=== PATIENT | male | born 1950 | race Caucasian/White ===

== ENCOUNTER 2017-08-20 20:38 | Emergency (ER) | payer BC, MEDICARE ==
[2017-08-20 21:00] VITALS: RESP 18
--- NOTE | 2017-08-20 21:03 | ED ---
Chest Pain HPI - General Chief Complaint: Chest Pain Stated Complaint: chest pain Time Seen by Provider: 08/20/17 20:51 Source: patient Mode of arrival: ambulatory Limitations: no limitations - History of Present Illness Initial Comments: This patient is a 66-year-old man who presents to be evaluated for substernal chest pain that came on between 3-4 hours ago. The patient states that he was at rest. He describes as a feeling like someone is pressing down on his chest. It is constant. He rates it mild. The patient did not notice any worsening or relieving factors. He does state that there is a bit of an upset stomach that came along with that he thought that it may be some indigestion. Patient denies dyspnea, diaphoresis, palpitations, lightheadedness or syncope. He did have a similar episode a few years ago, had a stress test, and was told that nothing was wrong with him. Patient denies smoking, stating that he quit 35 years ago. Patient's father did have a heart attack but he states that he was over 60 years old at the time. MD Complaint: chest pain Onset/Timin -: hour(s) Onset: during rest Pain Location: substernal Pain Radiation: none Severity: moderate Quality: heaviness Consistency: constant Improves With: nothing Worsens With: nothing Anginal Symptoms: nausea Treatments Prior to Arrival: none - Related Data Home Medications Medication Instructions Recorded Confirmed Aspirin 81 mg PO HS 08/20/17 08/20/17 Calcium Carbonate/Vitamin D3 1 tab PO BID 08/20/17 08/20/17 [Calcium 600-Vit D3 400 Caplet] Lisinopril [Zestril] 40 mg PO BID 08/20/17 08/20/17 Multivitamins, Thera [Multivitamin 1 tab PO DAILY 08/20/17 08/20/17 (formulary)] Naproxen [Naprosyn] 500 mg PO BID 08/20/17 08/20/17 amLODIPine [Norvasc] 10 mg PO DAILY 08/20/17 08/20/17 Allergies Allergy/AdvReac Type Severity Reaction Status Date / Time Penicillins Allergy Unknown Verified 08/20/17 21:32 Childhood Review of Systems ROS Statement: Those systems with pertinent positive or pertinent negative responses have been documented in the HPI. ROS Other: All systems not noted in ROS Statement are negative. Constitutional: Denies: fever, chills Respiratory: Denies: cough, dyspnea Cardiovascular: Reports: chest pain. Denies: palpitations, orthopnea, edema, syncope Gastrointestinal: Reports: nausea. Denies: abdominal pain, vomiting, diarrhea, melena, hematochezia Genitourinary: Denies: dysuria, hematuria Musculoskeletal: Denies: back pain Skin: Denies: rash Neurological: Denies: headache, weakness, numbness EKG Findings - EKG Results: EKG: interpreted by ERMD, sinus rhythm, normal axis, normal QRS, normal ST/T - Blocks, Velva, Hypertrophy, ST Abn: AV and intraventricular conduction: 1 AV block Past Medical History Past Medical History: Hypertension History of Any Multi-Drug Resistant Organisms: None Reported Past Surgical History: Orthopedic Surgery Additional Past Surgical History / Comment(s): right shoulder replacement and revision. left femur ORIF. left knee arthroscopy. Past Psychological History: No Psychological Hx Reported Smoking Status: Former smoker Past Alcohol Use History: Occasional Past Drug Use History: None Reported General Exam Limitations: no limitations General appearance: alert, in no apparent distress Head exam: Present: atraumatic, normocephalic Eye exam: Present: normal appearance. Absent: scleral icterus, conjunctival injection ENT exam: Present: normal oropharynx Neck exam: Present: normal inspection, full ROM Respiratory exam: Present: normal lung sounds bilaterally. Absent: respiratory distress, wheezes, rales, rhonchi, stridor Cardiovascular Exam: Present: regular rate, normal rhythm, normal heart sounds. Absent: systolic murmur, diastolic murmur, rubs, gallop GI/Abdominal exam: Present: soft. Absent: distended, tenderness, guarding, rebound, mass, pulsatile mass Extremities exam: Present: normal inspection, normal capillary refill. Absent: pedal edema, calf tenderness Back exam: Present: normal inspection. Absent: CVA tenderness (R), CVA tenderness (L) Neurological exam: Present: alert Skin exam: Present: warm, dry, intact, normal color. Absent: rash, cyanosis, diaphoretic, erythema, petechiae, pallor, mottled Course Vital Signs 08/20/17 08/20/17 08/20/17 20:40 20:59 21:36 Temperature 99 F Pulse Rate 68 71 63 Respiratory 16 18 18 Rate Blood Pressure 158/93 140/87 137/91 O2 Sat by Pulse 99 99 98 Oximetry 08/20/17 08/20/17 08/20/17 21:40 21:56 22:30 Temperature Pulse Rate 77 57 L 66 Respiratory 18 18 18 Rate Blood Pressure 124/78 116/80 135/75 O2 Sat by Pulse 98 98 97 Oximetry Disposition Clinical Impression: Chest pain Disposition: HOME SELF-CARE Condition: Good Instructions: Chest Pain (ED) Referrals: Phillip Almeida MD [Primary Care Provider] - 1-2 days Manuel Christensen MD [STAFF PHYSICIAN] - 1-2 days
[2017-08-20] MEDS ORDERED: NITROGLYCERIN SL TABS 0.4 MG TAB SUBLINGUAL STA (21:11)
[2017-08-20 21:32] LABS: Basophils # (A) 0.1 k/uL (0-0.2); Basophils % (A) 1 %; CH 30.9; CHCM 33.3; Eosinophils # (A) 0.4 k/uL (0-0.7); Eosinophils % (A) 8 %; HCT 44.1 % (39.0-53.0); HDW 2.37; HGB 14.6 gm/dL (13.0-17.5); INR 1.1 (<1.2); Luc # (Auto) 0.15; Luc % (Auto) 3; Lymphocytes # (A) 1.9 k/uL (1.0-4.8); Lymphocytes % (A) 34 %; MCH 30.9 pg (25.0-35.0); MCHC 33.1 g/dL (31.0-37.0); MCV 93.3 fL (80.0-100.0); Mean Platelet Volume 7.5; Monocytes # (A) 0.4 k/uL (0-1.0); Monocytes % (A) 8 %; Neutrophils # (A) 2.7 k/uL (1.3-7.7); Neutrophils % (A) 48 %; Partial Thromboplastin Time 24.8 sec (22.0-30.0); Prothrombin Time 10.8 sec (9.0-12.0); RBC 4.72 m/uL (4.30-5.90); RDW 13.5 % (11.5-15.5); WBC 5.7 k/uL (3.8-10.6); WBC (Perox) 5.99
[2017-08-20 21:43] LABS: ALT 54 U/L (21-72); AST 32 U/L (17-59); Alkaline Phosphatase 66 U/L (38-126); Anion Gap 12 mmol/L; Blood Urea Nitrogen 18 mg/dL (9-20); Calcium 9.5 mg/dL (8.4-10.2); Carbon Dioxide 22 mmol/L (22-30); Chloride 106 mmol/L (98-107); Glucose 110 mg/dL (74-99); Non-African American GFR(MDRD) >60 (>60 ml/min/1.73 sqM); Sodium 140 mmol/L (137-145); Total Bilirubin 0.3 mg/dL (0.2-1.3); Total Protein 7.1 g/dL (6.3-8.2)
[2017-08-20 21:48] LABS: Creatine Kinase 146 U/L (55-170)
--- NOTE | 2017-08-20 21:58 | XR ---
EXAMINATION TYPE: XR chest 1V portable DATE OF EXAM: 08/20/2017 COMPARISON: 08/12/2011 HISTORY: Chest pain TECHNIQUE: Single frontal view of the chest is obtained. FINDINGS: Heart and mediastinum are normal. Lungs are clear. Diaphragm is normal. There are chest le ads. There is old right clavicle fracture. IMPRESSION: No active cardiopulmonary disease. No change.
[2017-08-20 22:02] LABS: Creatine Kinase MB 1.8 ng/mL (0.0-2.4); Troponin I <0.012 ng/mL (0.000-0.034)
[2017-08-20 23:30] VITALS: BP 123/86; PULSE 56
[2017-08-21 00:20] VITALS: TEMP 97.6
== END 2017-08-21 00:20 | disposition home or self-care (01) ==
LOC: EC 20:38
DX: R07.2 Precordial pain (principal); I10 Essential (primary) hypertension; Z87.891 Personal history of nicotine dependence; Z79.82 Long term (current) use of aspirin; Z79.1 Long term (current) use of non-steroidal anti-inflammatories (NSAID); Z79.899 Other long term (current) drug therapy; Z88.0 Allergy status to penicillin
CPT/HCPCS: 36415; 71010; 80053; 82550; 82553; 83735; 84484; 85025; 85610; 85730; 93005; 99285

== ENCOUNTER 2018-06-16 07:46 | Day surgery (SDC) | payer BC, MEDICARE ==
[2018-06-15 09:20] VITALS: BMI 27.8
[2018-06-16] MEDS ORDERED: LACTATED RINGERS 1,000 ML IV ONE ×2 (08:26)
[2018-06-16] MEDS ORDERED: LIDOCAINE 1% 20 ML VIAL (10MG/ML) FOR IV START INTRADERMA ONE (08:26)
[2018-06-16 08:32] VITALS: RESP 16; TEMP 97.7
[2018-06-16] MEDS ORDERED: ONDANSETRON 4 MG/2 ML VIAL IVP ONE (08:43)
[2018-06-16] MEDS ORDERED: LIDOCAINE 1% 20 ML VIAL (10MG/ML) FOR IV START INTRADERMA PRN (08:43)
[2018-06-16] MEDS ORDERED: LACTATED RINGERS 1,000 ML IV SCH (08:45)
[2018-06-16] MEDS ORDERED: PROPOFOL 10 MG/ML 20 ML VIAL IV ONE (09:11)
--- NOTE | 2018-06-16 09:57 | P.PCN ---
Date of Procedure: 06/16/18 Procedure(s) Performed: Procedure: Total colonoscopy. Preoperative diagnosis: Screening for neoplasia. Postoperative diagnosis: Diverticulosis with no evidence of acute diverticulitis , strictures, polyps or cancer. Preparation: HalfLytely prep. Sedation: Was provided by anesthesia. Brief clinical history: The patient is a 67-year-old male who is scheduled for this evaluation for screening for neoplasia age being his risk factor. He had a prior exam more than 10 years ago. The patient has no abdominal complaints, bleeding or anemia. Procedure: With the patient on his left lateral decubitus position and after informed consent and adequate sedation, the perianal area was inspected and it did not show any fissures or fistulas. There were no masses felt on digital rectal examination. The Olympus CFQ 160L video colonoscope was then inserted in the rectum in the usual fashion and advanced to the cecum. There were multiple diverticular orifices seen scattered, mostly on the left side with occasional orifice around the hepatic flexure and on the right side, with no evidence of acute diverticulitis or strictures. The mucosa appeared healthy. No polyps or tumors were seen. I retroflexed the endoscope in the rectum before the endoscope was withdrawn. The patient tolerated the procedure well. Plan: The patient was reassured. Discussed dietary measures. He will follow up with you as planned and I recommended repeat exam in 10 years.
[2018-06-16 10:13] VITALS: BP 113/70; PULSE 50
== END 2018-06-16 10:34 | disposition home or self-care (01) ==
LOC: ORWHC2ENDO 07:46
DX: Z12.11 Encounter for screening for malignant neoplasm of colon (principal); K57.30 Diverticulosis of large intestine without perforation or abscess without bleeding; M19.90 Unspecified osteoarthritis, unspecified site; I10 Essential (primary) hypertension; Z85.828 Personal history of other malignant neoplasm of skin; Z88.0 Allergy status to penicillin; Z79.899 Other long term (current) drug therapy
CPT/HCPCS: 45378; J2704

== ENCOUNTER → 2018-08-07 | Outpatient (CLI) | payer BC, MEDICARE ==
--- NOTE | 2018-08-07 09:44 | US ---
EXAMINATION TYPE: US renal artery duplex complet DATE OF EXAM: 08/07/2018 COMPARISON: NONE CLINICAL HISTORY: I10 essential hypertention. uncontrolled HTN for five plus years. MEASUREMENTS: RENAL SIZE: Rt Kidney: 11.2 x 6.1 x 6.3 cm Lt Kidney: 12.2 x 6.2 x 5.5 cm RESISTANCE INDEX Right: 0.59 Left: 0.58 RA/AO RATIO (< 3.5 ) Right: 1.3 Left: 1.2 RA VELOCITY ( < 180 cm/s) Right: 122 Left: 118 Aorta unremarkable. Cysts noted on both kidneys, largest right measures 1.5 x 1.5 x 1.3 cm, and large st left measures 4.2 x 4.0 x 3.0 cm. No Ultrasound evidence for renal artery stenosis. Good upstroke on segmentals at renal hilum. IMPRESSION: No diagnostic evidence of renal artery stenosis.
== END | disposition home or self-care (01) ==
LOC: RADUSMAIN 07:53
PROVIDERS: ATTEND Family Medicine
DX: I10 Essential (primary) hypertension (principal)
CPT/HCPCS: 93975

== ENCOUNTER → 2020-06-08 | Outpatient (CLI) | payer MEDICARE ==
--- NOTE | 2020-06-08 07:23 | US ---
EXAMINATION TYPE: US duplex aorta DATE OF EXAM: 06/08/2020 COMPARISON: US 08/07/18 CLINICAL HISTORY: Z13.6 Encounter for screening for cardiovascular... EXAM MEASUREMENTS: Abdominal Aorta: Proximal: 2.9 x 2.7 cm Mid: 3.1 x 2.2 cm Distal: 1.9 x 1.8 cm Bifurcation: 1.0 cm 1.2 cm No evidence of AAA, suboptimal visualization overall due to large amounts of bowel gas. IMPRESSION: No evidence of AAA
== END | disposition home or self-care (01) ==
LOC: RADUSWWP 06:52
PROVIDERS: ATTEND Family Medicine
DX: Z13.6 Encounter for screening for cardiovascular disorders (principal)
CPT/HCPCS: 93979

== ENCOUNTER → 2024-05-06 | Outpatient (CLI) | payer MEDICARE | END | disposition home or self-care (01) | LOC: LABWHC1 11:00 | PROVIDERS: ATTEND Orthopaedic Surgery | DX: Z01.812 Encounter for preprocedural laboratory examination (principal); Z22.322 Carrier or suspected carrier of Methicillin resistant Staphylococcus aureus | CPT/HCPCS: 85610; 85730 ==

== ENCOUNTER → 2024-05-06 | Outpatient (CLI) | payer MEDICARE | END | disposition home or self-care (01) | LOC: LABPAT 14:06 | PROVIDERS: ATTEND Orthopaedic Surgery | DX: Z01.818 Encounter for other preprocedural examination (principal); I44.0 Atrioventricular block, first degree; Z22.322 Carrier or suspected carrier of Methicillin resistant Staphylococcus aureus | CPT/HCPCS: 86850; 86900; 86901 ==

== ENCOUNTER 2024-05-17 08:00 | Inpatient (IN) | payer MEDICARE ==
[~2024-05-17 08:00] MED LIST: SODIUM CHLORIDE 0.9% 1,000 ML BAG ONE; SODIUM CHLORIDE 0.9% 50 ML BAG ONE; ceFAZolin 1,000 MG VIAL ONE
[2024-05-17] MEDS ORDERED: DEXAMETHASONE SOD PHOSPHATE 4 MG/ML 1 ML VIAL ONE ×2 (08:37)
[2024-05-17] MEDS ORDERED: MELOXICAM 7.5 MG TAB ONE ×2 (08:37)
[2024-05-17] MEDS ORDERED: ACETAMINOPHEN TAB 500 MG TAB ONE ×2 (08:37)
[2024-05-17] MEDS ORDERED: ONDANSETRON 4 MG/2 ML VIAL ONE ×2 (08:37)
[2024-05-17] MEDS ORDERED: GABAPENTIN 300 MG CAP ONE ×2 (08:38)
[2024-05-17] MEDS ORDERED: ROPIVACAINE 5 MG/ML 30 ML VIAL ONE ×4 (08:38→10:00)
[2024-05-17] MEDS ORDERED: MIDAZOLAM 2 MG/2 ML VIAL ONE ×3 (08:38→09:22)
[2024-05-17] MEDS ORDERED: LACTATED RINGERS 1,000 ML BAG ONE (09:00)
[2024-05-17] MEDS ORDERED: ceFAZolin 10 GM VIAL IVPB ONE (09:00)
[2024-05-17] MEDS ORDERED: SODIUM CHLORIDE 0.9% 50 ML BAG IV ONE (09:00)
[2024-05-17] MEDS ORDERED: ePHEDrine 50 MG/ML 1 ML VIAL ONE (09:22)
[2024-05-17] MEDS ORDERED: PHENYLEPHRINE 10 MG/ML VIAL ONE (09:22)
[2024-05-17] MEDS ORDERED: TRANEXAMIC 1,000 MG/100ML-NACL PREMIX BAG ONE (09:22)
[2024-05-17] MEDS ORDERED: LIDOCAINE 1% INJ 10MG/ML (20 ML MDV) ONE (09:22)
[2024-05-17] MEDS ORDERED: fentaNYL (PF) 50 MCG/ML 2 ML AMP ONE (09:22)
[2024-05-17] MEDS ORDERED: PROPOFOL 10 MG/ML 20 ML VIAL IV ONE (09:22)
[2024-05-17] MEDS ORDERED: SODIUM CHLORIDE 0.9% 1,000 ML BAG ONE (10:00)
[2024-05-17] MEDS ORDERED: ceFAZolin 1,000 MG VIAL ONE (10:00)
[2024-05-17] MEDS ORDERED: SENNOSIDES-DOCUSATE SODIUM 1 EACH TAB PO ONE ×2 (20:36)
[2024-05-17] MEDS ORDERED: HYDROcodone/APAP 5-325MG 1 EACH TAB ONE ×2 (20:36)
[2024-05-18] MEDS ORDERED: METOPROLOL SUCCINATE (ER) 100 MG TAB.ER.24H PO ONE (00:01)
[2024-05-18] MEDS ORDERED: DOXAZOSIN 4 MG TAB ONE (00:01)
[2024-05-18] MEDS ORDERED: HYDROcodone/APAP 5-325MG 1 EACH TAB ONE ×4 (03:26→12:19)
[2024-05-18] MEDS ORDERED: lisinopriL 20 MG TAB ONE ×2 (07:43)
[2024-05-18] MEDS ORDERED: ASPIRIN 325 MG TAB ONE ×2 (07:43)
[2024-05-18] MEDS ORDERED: CHLORTHALIDONE 25 MG TAB ONE ×2 (07:43)
[2024-05-18] MEDS ORDERED: amLODIPine 10 MG TAB ONE ×2 (07:43)
[2024-05-18] MEDS ORDERED: LORATADINE 10 MG TAB ONE ×2 (07:44)
--- NOTE | 2024-06-14 11:37 | XR ---
Jhonny Napoles A ID: [id number] : 1950 EXAMINATION TYPE: XR Hip Limited 1 view RT DATE OF EXAM: 05/18/2024 Comparison: None Clinical History: 73-year-old male status post right hip arthroplasty, postoperative evaluation Findings: Image shows placement of right hip total arthroplasty. Acetabular cup and femoral stem components of the prosthesis are well seated without periprosthetic fracture. Alignment grossly anatomic. Soft tiss ue air related to recent operation. Impression: Uncomplicated postoperative appearance right hip total arthroplasty.
--- NOTE | 2024-07-01 10:36 | FL ---
EXAMINATION TYPE: FL guidance operating room, XR Hip Limited RT DATE OF EXAM: 06/08/2024 8:49 AM COMPARISON: Pre Operative Images if available both CT/MRI or plain film CLINICAL INDICATION: Male, 73 years old with history of TOTAL ANT RIGHT HIP; TECHNIQUE: FL guidance operating room, XR Hip Limited RT, multiple fluoroscopic images provided for p rocedure. Total fluoroscopy time: 37.6 seconds Total submitted images to PACS: 3 DAP: 3.2157 mGym2 Gycm2 uGym2 cGycm2 or equivalent. FINDINGS: Fluoroscopic images during internal fixation/arthroplasty demonstrate fixation hardware in appropriat e position. Hardware appears intact. No immediate complication identified. IMPRESSION: 1. No evidence for intraoperative complication. 2. Please see the operative/procedural note for further details. [facility], , 07/01/2024 10:33 AM
== END 2024-05-18 14:05 | disposition home or self-care (01) | DRG 470 ==
LOC: OR 08:00 → 4SSUR 10:46
PROVIDERS: ADMIT Orthopaedic Surgery; ATTEND Orthopaedic Surgery
PROC: 3E0T3BZ Introduction of Anesthetic Agent into Peripheral Nerves and Plexi, Percutaneous Approach (ICD-10-PCS; 2024-05-17)
PROC: 0SR904A Replacement of Right Hip Joint with Ceramic on Polyethylene Synthetic Substitute, Uncemented, Open Approach (ICD-10-PCS; principal; 2024-05-17 09:15)
DX: M16.11 Unilateral primary osteoarthritis, right hip (principal); I10 Essential (primary) hypertension; Z88.0 Allergy status to penicillin; Z87.891 Personal history of nicotine dependence; Z96.611 Presence of right artificial shoulder joint
CPT/HCPCS: 64447; 73501

== ENCOUNTER → 2024-07-28 | Outpatient (CLI) | payer MEDICARE ==
[2024-07-28 09:55] LABS: African American GFR (CKD) 68 (>60 ml/min/1.73 sqM); Blood Urea Nitrogen 23 mg/dL (9-20); Non-African American GFR(CKD) 59 (>60 ml/min/1.73 sqM)
--- NOTE | 2024-07-28 11:55 | CT ---
EXAMINATION TYPE: CT urogram wo/w con CT DLP: 4127.9 mGycm, Automated exposure control for dose reduction was used. DATE OF EXAM: 07/28/2024 11:02 AM COMPARISON: No direct comparisons. CLINICAL INDICATION:Male, 73 years old with history of R31.0 GROSS HEMATURIA; PHH, blood in urine TECHNIQUE: Urogram of the abdomen and pelvis was performed before and after the administration of 100 cc of IV c ontrast Isovue 300 contrast. Delayed imaging was performed. Coronal and sagittal reformats were perfo rmed. One or more CT dose reduction strategies were utilized during this examination. 2D and 3D recon structions are performed to assist visualization of the urinary tract on a separate workstation. FINDINGS: GENITOURINARY: RIGHT KIDNEY AND URETER: No calculi. No hydronephrosis or hydroureter. Exophytic posterior right mid kidney 2.0 cm nonenhancing cyst. Adjacent nonenhancing cortical 1.6 cm cyst. Renal sinus 3.1 cm nonen hancing cyst. No suspicious enhancing mass identified. No urothelial lesions: no filling defect, dila tion, stricture or wall thickening. LEFT KIDNEY AND URETER: No calculi. No hydronephrosis or hydroureter. Exophytic left lower pole 1.4 c m nonenhancing cyst. Left lower pole cortical 1.7 cm nonenhancing cyst. Additional exophytic left mid kidney 3.8 cm cyst with peripheral lateral 1.4 cm region of possible enhancement (series 19, image 4 9). No urothelial lesions: no filling defect, dilation, stricture or wall thickening. URINARY BLADDER: Moderately well distended. Normal, no calculi, mass or other lesions. REPRODUCTIVE: Enlarged prostate gland measuring 5.2 cm in transverse dimension. This indents upon the bladder base. ABDOMEN LIVER: Few scattered hepatic cysts the largest within the left hepatic lobe laterally measuring up to 4.5 cm.. GALLBLADDER AND BILE DUCTS: Unremarkable PANCREAS: Unremarkable. SPLEEN: Calcified 1.3 cm lesion within the inferior aspect of the spleen likely representing a trauma tic pseudocyst. ADRENAL GLANDS: Unremarkable. STOMACH AND BOWEL: Distal colonic diverticulosis without evidence for acute diverticulitis. The appen vilma is within normal limits. No focal bowel wall thickening or surrounding inflammatory changes.. No evidence of bowel obstruction. PERITONEUM: No evidence of pneumoperitoneum or free fluid. Mildly enlarged 1.3 cm short axis lymph n ode anterior to the IVC (series 5, image 51). Additional mildly enlarged periportal lymph nodes measu ring up to 1.3 cm short axis. VASCULATURE: No aortic aneurysm. MUSCULOSKELETAL: No acute osseous abnormalities. Postsurgical changes from right total hip arthroplas ty. Additional post fixation changes of the left proximal femur. Moderate multilevel degenerative dis c disease. Diffuse bone demineralization. Mild retrolisthesis of L3 on L4. Grade 1 anterolisthesis L5 on S1 with bilateral pars defects. Degenerative changes of both SI joints. SOFT TISSUE/ABDOMINAL WALL: Small fat filled umbilical hernia. LOWER CHEST: Mild prominent heart size. The visualized lung bases are clear. IMPRESSION: 1. Bilateral simple appearing renal cysts with a left mid kidney 3.8 cm cyst with possible peripheral enhancement. Raises possibility of renal cell carcinoma versus proteinaceous/hemorrhagic cyst. Furth er evaluation with MR abdomen with IV contrast (renal mass protocol) is recommended. 2. No evidence of urolithiasis. 3. Few nonspecific mildly enlarged periportal and pericaval lymph nodes. Possibly related to #1. 4. Colonic diverticulosis without evidence for acute diverticulitis. 5. Prostatomegaly. [facility], , 07/28/2024 11:53 AM
== END | disposition home or self-care (01) ==
LOC: RADCTMAIN 09:19
PROVIDERS: ATTEND Urology
CPT/HCPCS: 36415; 74178; 74400; 82565; 84520